=== PATIENT | male | born 1950 | race Caucasian/White ===

== ENCOUNTER 2025-01-06 20:40 | Emergency (ER) | payer MEDICARE, SELFPAY ==
[2025-01-06 20:46] VITALS: BP 155/92; PULSE 96; RESP 18; TEMP 36.9; O2SAT 95; BMI 27.1
--- NOTE | 2025-01-06 22:09 | PCA ---
NO OLD EKG
[2025-01-06] MEDS: Ziprasidone IM 20 MG/ML VIAL 10 MG IM ×2 (22:15→23:05)
--- NOTE | 2025-01-06 22:25 | ED.RN ---
Pt restless, agitated constantly moving in bed, swinging legs and arms over bed rails. Pt grabs at staff, resistive to care. Unable to redirect pt. Staff remain at bedside.
--- NOTE | 2025-01-06 22:36 | EDS_ITS ---
HPI History of Present Illness Chief Complaint: Confusion Narrative Narrative: Chief complaint and HPI: 74-year-old male with past medical history of dementia presents via EMS from [facility] for agitation. History taken via long term report. Per their report, patient was just accepted to their facility today from a [facility]. The staff states that they did not have his medication or the proper staffing to care for him. States that he was walking the halls with his eyes closed and intermittently agitated. Was not physically abusive. Patient is not verbal and mostly keeps his eyes closed. Will not follow commands but has full range of motion. Review of systems: See HPI Medications: As listed on the chart Allergies: As listed on the chart PFSH: Per chart Vital signs: As listed on the chart. Reviewed. Physical exam: Gen: Alert, nonverbal and unable to assess orientation, intermittently agitated when stimulated Head: Normocephalic, atraumatic Eyes: No sclera icterus, conjunctiva clear, PERRL ENT: Moist mucous membranes Neck: Trachea midline, No JVD CV: RRR, no murmurs, no peripheral edema Resp: Lungs CTA BL, no w/r/c GI: Abd soft, non-distended, non-tender, no r/r/g Musc: Full ROM, no deformity Skin: Warm, dry Psych: Uncooperative [facility] Medical History (Updated 01/06/25 @ 22:27 by Shahnaz Camarena) Dementia Allergy/AdvReac Type Severity Reaction Status Date / Time bacitracin Allergy Unknown unknown Verified 01/06/25 20:46 etodolac Allergy Unknown unknown Verified 01/06/25 20:46 shellfish derived Allergy Unknown unknown Verified 01/06/25 20:46 Social History Smoking Status: Unknown if ever smoked EXAM Physical Exam Const Vital Signs: 01/06/25 20:46 01/06/25 20:46 Temperature 98.5 F Temperature Source Axillary Pulse Rate 96 Respiratory Rate 18 Blood Pressure 155/92 H 155/92 H Blood Pressure Mean 113 113 Pulse Ox 95 Oxygen Delivery Method Room Air MDM MDM MDM Narrative Medical decision making narrative: 74-year-old male with past medical history of dementia presents via EMS from [facility] for agitation. History taken via long term report. Per their report, patient was just accepted to their facility today from a [facility]. The staff states that they did not have his medication or the proper staffing to care for him. States that he was walking the halls with his eyes closed and intermittently agitated. Was not physically abusive. Patient is not verbal and mostly keeps his eyes closed. Will not follow commands but has full range of motion. Unable to obtain HPI from the patient. On presentation, patient intermittently agitated with stimulation. Vitals are stable other than mild hypertension. Given that patient's baseline is unknown from the healthcare facility I did contact his Candelaria at [phone]. She states that this has been the patient's baseline for the past several weeks. States patient originally was alert with mild confusion from dementia. Functional at home. He then had an episode of back pain that resulted in a care facility. At the care facility he then endorsed homicidal ideation in which she was sent to a [facility] psychiatric facility in [place]. States that he has been there for 7 weeks. She states the patient has progressively declined over the past 7 weeks. He has been nonverbal. Agitated. Does not follow commands. States that he was discharged from the facility today. On chart review, patient is on multiple medications for dementia and dementia with behaviors. Prior to speaking with the , an altered mental status workup was ordered however after speaking to the she states that she does not want further workup for patient's agitation. She states that this is his baseline and she is looking to start the patient in hospice tomorrow. She would like the patient's agitation treated and for him to discharge back to the facility. yarn dry room worker was consulted who spoke to the as well as staff at the care facility. Patient was given Geodon with improvement of his agitation. Patient will be discharged back to the facility. Impression: 1. Agitation 2. History of dementia with behavioral issues Discharge Plan Triage Chief Complaint: Confusion ED Provider: Satish Magallon Dx/Rx/DC Orders Primary Care Provider: Leon Horton Referrals: Leon Horton MD [Primary Care Provider] - Print Language: Congolese
[2025-01-06 22:42] VITALS: PULSE 82; RESP 16; O2SAT 97
--- NOTE | 2025-01-06 23:09 | CM.ED ---
Social Work Patient was sent to ER from [facility] this evening. Nurse from [facility] states they received patient today but did not have his medications or enough staff to care for him at this time as patient was restless and walking with his eyes shut, unaware of safety concerns. JOSSY spoke with who stated that patient had been at [facility] when he made homicidal statements and was subsequently sent to [facility] for mental health treatment. Patient remained there for 7 weeks until discharged to [facility]. Patients expressed frustration at patients decline and reported to JOSSY that she is planning on starting patient on Hospice tomorrow. Emotional support provided. No further needs identified at this time. Heaven Parikh, CLERK GENERAL, NURSE REVIEWER
[2025-01-07] VITALS: PULSE 78; RESP 14; O2SAT 96
--- NOTE | 2025-01-07 01:37 | PCA ---
Called [facility] @0044 to confirm eta would still be before 0100, spoke to Idania. She stated they were in route and eta is 20-30 minutes. Called again @ 0134 to check where crew is, they stated they were 20 minutes out.
== END 2025-01-07 02:09 | disposition home or self-care (01) ==
PROVIDERS: Emergency Provider Surgery; PCP Family Medicine; Visit Provider Surgery
DX: R45.850 Homicidal ideations (principal); F03.90 Unspecified dementia, unspecified severity, without behavioral disturbance, psychotic disturbance, mood disturbance, and anxiety; I10 Essential (primary) hypertension; R45.1 Restlessness and agitation
CPT/HCPCS: 96372; 99284; A4216; J3486